=== PATIENT | male | born 1940 | race American Indian/Alaskan Native ===

== ENCOUNTER 2016-11-05 10:14 | Emergency (ER) | payer MEDICARE ==
[2016-11-05 10:34] VITALS: BP 138/73
[2016-11-05 11:31] LABS: Alanine Aminotransferase 6 units/L (7-56); Albumin 3.3 g/dL (3.9-5); Albumin/Globulin Ratio 0.7 %; Alkaline Phosphatase 94 units/L (35-129); Anion Gap 20 mmol/L; BUN/Creatinine Ratio 11.66; Bilirubin,Total 0.8 mg/dL (0.1-1.2); Blood Urea Nitrogen 14 mg/dL (9-20); Calcium 9.4 mg/dL (8.4-10.2); Carbon Dioxide 25 mmol/L (22-30); Chloride 96.5 mmol/L (98-107); Glucose 138 mg/dL (75-100); Lipase 25 units/L (13-60); Sodium 137 mmol/L (137-145)
[2016-11-05 11:54] LABS: Basophils % (Auto) 0.5 % (0.0-1.8); Eosinophils % (Auto) 0.2 % (0.0-4.3); Hematocrit 35.6 % (35.5-45.6); Hemoglobin 11.4 gm/dl (11.8-15.2); Mean Corpuscular HGB Conc 32 % (32-34); Mean Corpuscular Hemoglobin 29 pg (28-32); Mean Corpuscular Volume 91 fl (84-94); Platelet Count 392 K/mm3 (140-440); Red Cell Distribution Width 14.5 % (13.2-15.2); White Blood Count 8.3 K/mm3 (4.5-11.0)
[2016-11-05 13:48] LABS: Bacteria,Urine 4+ /HPF (Negative); Bilirubin,Urine NEG (Negative); Blood,Urine SM (Negative); Ketones,Urine NEG (Negative); Leukocyte Esterase,Urine NEG (Negative); Mucus,Urine FEW /HPF; Nitrite,Urine NEG (Negative)
--- NOTE | 2016-11-06 07:58 | ED Elopement Review ---
ED Pt Elopement review - Results review Lab results: Laboratory Tests 11/05/16 11/05/16 11/05/16 10:47 10:47 Unknown WBC 8.3 RBC 3.90 Hgb 11.4 L Hct 35.6 MCV 91 MCH 29 MCHC 32 RDW 14.5 Plt Count 392 Lymph % (Auto) 16.4 [place] % (Auto) 11.6 H Eos % (Auto) 0.2 Baso % (Auto) 0.5 Lymph # 1.4 [place] # 1.0 H Eos # 0.0 Baso # 0.0 Seg Neutrophils % 71.3 H Seg Neutrophils # 6.0 Sodium 137 Potassium 4.0 Chloride 96.5 L Carbon Dioxide 25 Anion Gap 20 BUN 14 Creatinine 1.2 Estimated GFR > 60 BUN/Creatinine Ratio 11.66 Glucose 138 H Calcium 9.4 Total Bilirubin 0.8 AST 11 ALT 6 L Alkaline Phosphatase 94 Total Protein 8.0 Albumin 3.3 L Albumin/Globulin Ratio 0.7 Lipase 25 Urine Color Yellow Urine Turbidity Clear Urine pH 6.0 Ur Specific [place] 1.013 Urine Protein 100 mg/dl Urine Glucose (UA) Neg Urine Ketones Neg Urine Blood Sm Urine Nitrite Neg Urine Bilirubin Neg Urine Urobilinogen 2.0 Ur Leukocyte Esterase Neg Urine WBC (Auto) 9.0 H Urine RBC (Auto) 8.0 Urine Bacteria (Auto) 4+ Urine Mucus Few Urine Yeast (Budding) 1+ - Call Back decision Pt Call Back Decision: No action required
== END 2016-11-05 11:45 | disposition left against medical advice (07) ==
LOC: ED 10:14
DX: R10.9 Unspecified abdominal pain (principal); Z53.21 Procedure and treatment not carried out due to patient leaving prior to being seen by health care provider
CPT/HCPCS: 36415; 80053; 81001; 83690; 85025